=== PATIENT | female | born 1960 | race Caucasian/White ===

== ENCOUNTER 2021-07-24 20:32 | Inpatient (IN) | payer BC ==
[2021-07-24] MEDS ORDERED: METHYLPREDNISOLONE 125 MG INJ ONE (21:36)
--- NOTE | 2021-07-24 21:57 | RAD REPORT ---
EXAM DESCRIPTION: RAD - Chest Single View - 07/24/2021 9:49 pm CLINICAL HISTORY: covid +;Cough;Dyspnea COMPARISON: No comparisons FINDINGS: There are some patchy ill-defined opacities predominantly left-sided but also the right aleksandar ng base per The heart size is within normal limits.No acute osseous abnormality. No significant pleur al effusions or pneumothorax. IMPRESSION: Patchy ill-defined bilateral airspace disease, left greater than right, may reflect mult ifocal pneumonia.
[2021-07-24 22:34] LABS: Protime INR 1.14
[2021-07-24 22:35] LABS: Absolute Lymphocytes (CBC) 0.4 K/uL (0.7-4.9); Basophils % 0.1 % (0-1.3); Hematocrit 39.4 % (36.0-45.0); Lymphocytes % 11.3 % (15.3-44.8); MPV 8.4 fL (7.6-11.3)
[2021-07-24 22:42] LABS: ALT/SGPT 31 U/L (12-78); AST/SGOT 58 U/L (15-37); Albumin 2.6 g/dL (3.4-5.0); Alkaline Phosphatase 61 U/L (45-117); BUN Blood Urea Nitrogen 9 mg/dL (7-18); Bicarbonate 29 mmol/L (21-32); Bilirubin Direct 0.1 mg/dL (0-0.2); Bilirubin Total 0.3 mg/dL (0.2-1.0); Ferritin 727.8 ng/mL (8-388); Glucose Level 99 mg/dL (74-106); Lipase 281 U/L (73-393); Potassium 3.5 mmol/L (3.5-5.1); Protein, Total 7.1 g/dL (6.4-8.2); Sodium Level 139 mmol/L (136-145); Troponin (Emerg Dept Use Only) < 0.02 ng/mL (0.0-0.045)
--- NOTE | 2021-07-24 23:24 | ER ---
Nurse's Notes [facility] Name: Elle Foster Age: 60 yrs Sex: Female : 1960 Arrival Date: 07/24/2021 Time: 20:36 Bed 8 Private MD: Diagnosis: Pneumonia due to SARS-associated coronavirus;Dehydration;Hypoxemia Presentation: 07/24 21:00 Chief complaint: Patient states: had a rapid covid test today and was positive, SPO2 em 80% at home and was told to come to the ER if below 90%. Coronavirus screen: Client denies travel out of the [place] in the last 14 days. Ebola Screen: Patient negative for fever greater than or equal to 101.5 degrees Fahrenheit, and additional compatible Ebola Virus Disease symptoms Patient denies exposure to infectious person. Patient denies travel to an Ebola-affected area in the 21 days before illness onset. No symptoms or risks identified at this time. Initial Sepsis Screen: Does the patient meet any 2 criteria? HR > 90 bpm. No. Patient's initial sepsis screen is negative. Does the patient have a suspected source of infection? Yes: Productive cough/pneumonia. Risk Assessment: Do you want to hurt yourself or someone else? Patient reports no desire to harm self or others. Onset of symptoms was July 24, 2021. 21:00 Method Of Arrival: Ambulatory em 21:00 Acuity: MAXIMILIANO 2 em Historical: - Allergies: 21:02 No Known Allergies; em - PMHx: 21:02 None; em - PSHx: 21:02 None; em - Immunization history:: Client reports having NOT received the Covid vaccine. - Social history:: Smoking status: Patient denies any tobacco usage or history of. - Family history:: not pertinent. - Hospitalizations: : No recent hospitalization is reported. Screenin:00 Abuse screen: Denies threats or abuse. Nutritional screening: No deficits noted. jb4 Tuberculosis screening: No symptoms or risk factors identified. Fall Risk None identified. Assessment: 21:00 General: Appears in no apparent distress. comfortable, Behavior is calm, cooperative, jb4 appropriate for age. Pain: Denies pain. Neuro: Level of Consciousness is awake, alert, obeys commands, Oriented to person, place, time, situation. Cardiovascular: Patient's skin is warm and dry. Respiratory: Airway is patent Respiratory effort is even, unlabored, Respiratory pattern is regular, symmetrical. GI: No signs and/or symptoms were reported involving the gastrointestinal system. : No signs and/or symptoms were reported regarding the genitourinary system. EENT: No signs and/or symptoms were reported regarding the EENT system. Derm: Skin is intact, Skin is pink, warm \T\ dry. Musculoskeletal: Circulation, motion, and sensation intact. Range of motion:. 22:00 Reassessment: Patient appears in no apparent distress at this time. Patient and/or jb4 family updated on plan of care and expected duration. Pain level reassessed. Patient is alert, oriented x 3, equal unlabored respirations, skin warm/dry/pink. 22:45 Reassessment: Pt noted to desat while at rest to 88% on RA, placed on 2L NC, provider jb4 notified. 23:00 Reassessment: Patient appears in no apparent distress at this time. Patient and/or jb4 family updated on plan of care and expected duration. Pain level reassessed. Patient is alert, oriented x 3, equal unlabored respirations, skin warm/dry/pink. 07/25 00:00 Reassessment: Patient appears in no apparent distress at this time. Patient and/or jb4 family updated on plan of care and expected duration. Pain level reassessed. Patient is alert, oriented x 3, equal unlabored respirations, skin warm/dry/pink. 19:40 Reassessment: Report given to receiving nurse on fourth left ED via wheelchair, per ED ea tech, pt remains on O2 tolerating well. Vital Signs: 07/24 21:00 BP 115 / 69; Pulse 107; Resp 26; Temp 98.8; Pulse Ox 84% on R/A; Weight 42.64 kg; em Height 4 ft. 11 in. (149.86 cm); 22:01 BP 113 / 71; Pulse 101; Resp 35; Pulse Ox 93% on R/A; 23:00 BP 115 / 64; Pulse 99; Resp 26; Pulse Ox 96% on 2 lpm NC; jb4 07/25 00:00 BP 125 / 78; Pulse 96; Resp 20; Temp 98.9(O); Pulse Ox 95% on 2 lpm NC; 4 07/24 21:00 Body Mass Index 18.99 (42.64 kg, 149.86 cm) ED Course: 07/24 20:36 Patient arrived in ED. mr 21:00 Patient has correct armband on for positive identification. Bed in low position. Call jb4 light in reach. Side rails up X 1. engine monitor on. Pulse ox on. NIBP on. 21:01 Artemio Saldana MD is Attending Physician. rn 21:02 Triage completed. em 21:02 Arm band placed on. em 21:13 Shashi Murphy, RN is Primary Nurse. jb4 21:49 CXR XRAY In Process Unspecified. EDMS 22:00 Inserted saline lock: 18 gauge in right antecubital area, using aseptic technique. jb4 Blood collected. 23:23 Andrea Weber MD is Hospitalizing Provider. rn 07/25 00:00 No provider procedures requiring assistance completed. Patient admitted, IV remains in jb4 place. Administered Medications: 07/24 22:00 Drug: SOLU-Medrol (methylPrednisoLONE) 125 mg Route: IVP; Site: right antecubital; jb4 22:30 Follow up: Response: No adverse reaction jb4 Outcome: 23:23 Decision to Hospitalize by Provider. rn 07/25 00:00 Admitted to ER Hold. Please see [facility] for further documentation. jb4 Condition: stable Discharge instructions given to patient, Instructed on the need for admit, Demonstrated understanding of instructions. 19:42 Patient left the ED. ea Signatures: Dispatcher [employer] [facility] McleanHarriet mr CastroMarshal RN RN Artemio Saldana MD MD rn Bryson, James, RN RN [facility] Keysha Kim RN RN ea Corrections: (The following items were deleted from the chart) 07/24 21:03 21:02 Allergies: Aspirin; em em
--- NOTE | 2021-07-24 23:24 | EDPHYS ---
Physician Documentation [facility] Name: Elle Foster Age: 60 yrs Sex: Female : 1960 Arrival Date: 07/24/2021 Time: 20:36 Bed 8 Private MD: ED Physician Artemio Saldana HPI: 07/24 22:24 This 60 yrs old Female presents to ER via Ambulatory with complaints of rn COVID+ Low O2, Cough. 22:24 The patient or guardian reports cough, difficulty breathing. Onset: The rn symptoms/episode began/occurred 10 day(s) ago. Severity of symptoms: At their worst the symptoms were moderate, in the emergency department the symptoms are unchanged. Modifying factors: The symptoms are alleviated by nothing, the symptoms are aggravated by exertion. Associated signs and symptoms: Pertinent positives: fever, rhinorrhea, Pertinent negatives: chest pain. The patient has not experienced similar symptoms in the past. The patient has been recently seen by a physician:. 22:25 Patient reports about 1 week and 1/2 weeks of feeling bad, Covid positive with rapid rn test at home, cough and now shortness of breath that began today. No chronic medical problems.. Historical: - Allergies: 21:02 No Known Allergies; em - PMHx: 21:02 None; em - PSHx: 21:02 None; em - Immunization history:: Client reports having NOT received the Covid vaccine. - Social history:: Smoking status: Patient denies any tobacco usage or history of. - Family history:: not pertinent. - Hospitalizations: : No recent hospitalization is reported. ROS: 22:25 Constitutional: Positive for fever and chills Eyes: Negative for injury, pain, redness, rn and discharge, Neck: Negative for injury, pain, and swelling, Cardiovascular: Negative for chest pain, palpitations, and edema, Respiratory: Negative for wheezing, and pleuritic chest pain, Abdomen/GI: Negative for abdominal pain, nausea, vomiting, diarrhea, and constipation, Back: Negative for injury and pain, MS/Extremity: Negative for injury and deformity, Skin: Negative for injury, rash, and discoloration, Neuro: Negative for numbness, tingling, and seizure. 22:25 All other systems are negative. Exam: 22:25 Constitutional: This is a well developed, well nourished patient who is awake, alert, rn and in no acute distress. Head/Face: Normocephalic, atraumatic. Eyes: Pupils equal round and reactive to light, extra-ocular motions intact. Lids and lashes normal. Conjunctiva and sclera are non-icteric and not injected. Cornea within normal limits. Periorbital areas with no swelling, redness, or edema. ENT: No stridor, +dry mucous membranes Neck: Trachea midline, no thyromegaly or masses palpated, and no cervical lymphadenopathy. Supple, full range of motion without nuchal rigidity, or vertebral point tenderness. No Meningismus. Cardiovascular: Tachycardic, regular Respiratory: Mild to moderate tachypnea, no retractions Abdomen/GI: Soft, nontender Skin: Warm, dry, no cyanosis MS/ Extremity: Pulses equal, no cyanosis. Neurovascular intact. Full, normal range of motion. Equal circumference. Neuro: Awake and alert, GCS 15 23:07 ECG was reviewed by the Attending Physician. rn 07/25 02:21 ECG was reviewed by the Attending Physician. rn Vital Signs: 07/24 21:00 BP 115 / 69; Pulse 107; Resp 26; Temp 98.8; Pulse Ox 84% on R/A; Weight 42.64 kg; em Height 4 ft. 11 in. (149.86 cm); 22:01 BP 113 / 71; Pulse 101; Resp 35; Pulse Ox 93% on R/A; jb4 23:00 BP 115 / 64; Pulse 99; Resp 26; Pulse Ox 96% on 2 lpm NC; [facility] 07/25 00:00 BP 125 / 78; Pulse 96; Resp 20; Temp 98.9(O); Pulse Ox 95% on 2 lpm NC; 4 07/24 21:00 Body Mass Index 18.99 (42.64 kg, 149.86 cm) em MDM: 07/24 21:01 Patient medically screened. rn 23:21 Differential Diagnosis: Bronchitis Upper Respiratory Infection Viral Syndrome Pneumonia rn Other Covid. Data reviewed: vital signs, nurses notes, lab test result(s), EKG, radiologic studies, plain films, and as a result, I will admit patient. Data interpreted: quality assurance monitor final: rate is 101 beats/min, rhythm is sinus tachycardia, with no ectopy, Interpretation: tachycardia, Pulse oximetry: on room air is 88 %. Interpretation: hypoxia. Plan: O2 by NC applied. Test interpretation: by ED physician or midlevel provider: ECG, plain radiologic studies, Chest x-ray with bilateral infiltrates consistent with Covid pneumonia. Counseling: I had a detailed discussion with the patient and/or guardian regarding: the historical points, exam findings, and any diagnostic results supporting the discharge/admit diagnosis, lab results, radiology results, the need for further work-up and treatment in the hospital. Response to treatment: the patient's symptoms have mildly improved after treatment, and as a result, I will admit patient. Admission orders: after a detailed discussion of the patient's condition and case, the admit orders are written by me. 07/24 21:05 Order name: BMP 07/24 21:05 Order name: Blood Culture Adult (2) 07/24 21:05 Order name: C-Reactive Protein; Complete Time: 23: 07/24 21:05 Order name: CBC with Diff; Complete Time: 23: 07/24 21:05 Order name: D-Dimer; Complete Time: 23: 07/24 21:05 Order name: Ferritin; Complete Time: 23:06 07/24 21:05 Order name: LFT's; Complete Time: 23:06 07/24 21:05 Order name: Lactate 07/24 21:05 Order name: Lipase; Complete Time: 23:06 07/24 21:05 Order name: PT-INR; Complete Time: 23:06 07/24 21:05 Order name: Procalcitonin 07/24 21:05 Order name: Ptt, Activated; Complete Time: 23: 07/24 21:05 Order name: Troponin (emerg Dept Use Only); Complete Time: 23:06 07/24 21:06 Order name: Basic Metabolic Panel; Complete Time: 23:06 EDAL 07/24 21:05 Order name: CXR XRAY; Complete Time: 22:03 07/24 21:05 Order name: EKG; Complete Time: 21: 07/24 21:06 Order name: Blood Culture [facility] 07/24 23:19 Order name: SARS-COV-2 RT PCR EDAL 07/25 04:41 Order name: CBC with Automated Diff EDAL 07/25 04:49 Order name: Comprehensive Metabolic Panel [facility] 07/25 04:49 Order name: Phosphorus EDAL 07/25 04:49 Order name: Lipid Profile [facility] 07/25 04:49 Order name: C-Reactive Protein [facility] 07/25 04:49 Order name: T4 Free [facility] 07/25 04:49 Order name: Magnesium [facility] 07/25 04:49 Order name: Thyroid Stimulating Hormone [facility] 07/25 04:49 Order name: Ferritin [facility] 07/25 05:04 Order name: Procalcitonin [facility] 07/24 21:05 Order name: Cardiac monitoring; Complete Time: 22:00 rn 07/24 21:05 Order name: Droplet/Contact Precautions; Complete Time: 22:00 rn 07/24 21:05 Order name: EKG - Nurse/Tech; Complete Time: 22:00 rn 07/24 21:05 Order name: IV Start; Complete Time: 22:00 rn 07/24 21:05 Order name: Labs collected and sent; Complete Time: 22:01 rn 07/24 21:05 Order name: O2 Per Protocol; Complete Time: 22: rn 07/24 21:05 Order name: O2 Sat Monitoring; Complete Time: 22: rn 07/24 23:49 Order name: CONS Physician Consult EDAL EC:07 Rate is 97 beats/min. Rhythm is regular. QRS [place] is Normal. NC interval is normal. QRS rn interval is normal. QT interval is normal. No Q waves. T waves are Normal. No ST changes noted. Clinical impression: Normal ECG. Interpreted by me. Reviewed by me. Administered Medications: 22:00 Drug: SOLU-Medrol (methylPrednisoLONE) 125 mg Route: IVP; Site: right antecubital; jb4 22:30 Follow up: Response: No adverse reaction jb4 Disposition Summary: 07/24/21 23:23 Hospitalization Ordered Hospitalization Status: Inpatient Admission rn Provider: Andrea Weber rn Condition: Stable rn Problem: new rn Symptoms: have improved rn Bed/Room Type: Standard rn Location: Telemetry/MedSurg (Inpatient)(07/25/21 18:36) dw Room Assignment: 430(07/25/21 18:36) dw Diagnosis - Pneumonia due to SARS-associated coronavirus rn - Dehydration rn - Hypoxemia rn Forms: - Medication Reconciliation Form rn - SBAR form rn Signatures: Dispatcher [employer] EDAL Consuelo Mayes, RN RN dw Marshal Castro RN RN em Artemio Saldana MD MD rn Lasagna, Tonya, RN RN tl1 Shashi Murphy RN RN jb4 Corrections: (The following items were deleted from the chart) 21:03 21:02 Allergies: Aspirin; em em 22:10 21:07 CORONAVIRUS+MR.LAB.BRZ ordered. [facility] 07/25 00:20 07/24 23:23 Telemetry/MedSurg (Inpatient) rn tl1 07/25 00:20 07/24 23:23 rn tl1 07/25 18:36 00:20 [facility] ER HOLD tl1 dw 18:36 00:20 ERHOLD- tl1 dw
--- NOTE | 2021-07-25 00:28 | P.HP ---
Certification for Inpatient Patient admitted to: Observation With expected LOS: <2 Midnights Patient will require the following post-hospital care: None Practitioner: I am a practitioner with admitting privileges, knowledge of patient current condition, hospital course, and medical plan of care. Services: Services provided to patient in accordance with Admission requirements found in Title 42 Section 412.3 of the Code of Federal Regulations <Erich Messina - Last Filed: 07/25/21 00:22> Patient History Date of Service: 07/24/21 Primary Care Provider: Khadijah Reason for admission: covid pneumonia History of Present Illness: Ms. Foster is a 60 yo F who presents with 10 days of worsening cough and SOB. She is positive for COVID. Reports fever, malaise, anorexia, sputum production, and diarrhea. Denies nausea and vomiting. Sats of 84% on RA, improved on NC. CXR shows patchy ill-defined bilateral airspace disease, left greater than right that may reflect multifocal pneuemonia. Ferritin 727. CRP 116. - Past Medical/Surgical History Has patient received pneumonia vaccine in the past: No Diabetic: No Past Medical History: Patient denies medical history Past Surgical History: Patient denies surgical history - Family History Family History: Reviewed- Non-Contributory - Social History Smoking Status: Never smoker Alcohol use: Yes CD- Drugs: No Caffeine use: Yes Place of Residence: Home <Erich Messina - Last Filed: 07/25/21 00:22> Date of Service: 07/24/21 <Andrea Weber - Last Filed: 07/26/21 17:05> Review of Systems 10-point ROS is otherwise unremarkable General: Fever, Chills, Sweats, Malaise Respiratory: Cough, Shortness of Breath, SOB with Excertion, Sputum Gastrointestinal: Diarrhea <Erich Messina - Last Filed: 07/25/21 00:22> Physical Examination - Physical Exam General: Alert, In no apparent distress HEENT: Atraumatic, PERRLA, Mucous membr. moist/pink, EOMI, Sclerae nonicteric Neck: Supple, 2+ carotid pulse no bruit, No LAD, Without JVD or thyroid abnormality Respiratory: Normal air movement, Rhonchi/gurgles Cardiovascular: Regular rate/rhythm, Normal S1 S2 Gastrointestinal: Normal bowel sounds, No tenderness Musculoskeletal: No tenderness Integumentary: No rashes Neurological: Normal gait, Normal speech, Normal strength at 5/5 x4 extr, Normal tone, Normal affect Lymphatics: No axilla or inguinal lymphadenopathy - Studies Laboratory Data (last 24 hrs) 07/24/21 21:50: PT 13.1 H, INR 1.14, APTT 33.7 07/24/21 21:50: WBC 3.80 L, Hgb 13.3, Hct 39.4, Plt Count 170 07/24/21 21:50: Sodium 139, Potassium 3.5, BUN 9, Creatinine 0.50 L, Glucose 99, Total Bilirubin 0.3, AST 58 H, ALT 31, Alkaline Phosphatase 61, Lipase 281 <Erich Messina - Last Filed: 07/25/21 00:22> - Studies Microbiology Data (last 24 hrs): 07/24/21 22:45 Blood - Blood Anaerobic Blood Culture - Final <Andrea Weber - Last Filed: 07/26/21 17:05> Assessment and Plan - Problems (Diagnosis) (1) Pneumonia due to COVID-19 virus Current Visit: Yes Status: Acute - Plan pulm consulted, respiratory therapy consulted sats for home o2, and room air sats daily continue IV steroids, covid supplementation and ivermectin daily CRP, ferritin, procal DVT ppx Discharge Plan: Home Plan to discharge in: 24 Hours - Advance Directives Does patient have a Living Will: No Does patient have a Durable POA for Healthcare: No - Code Status/Comfort Care Code Status Assessed: Yes (full code ) Critical Care: No Time Spent Managing Pts Care (In Minutes): 70 <Erich Messina - Last Filed: 07/25/21 00:22> - Problems (Diagnosis) (1) Pneumonia due to COVID-19 virus Current Visit: Yes Status: Acute <Andrea Weber - Last Filed: 07/26/21 17:05> Date of Service: 07/24/21 Subjective Patient is clinically doing well; she is constipated Review of Systems 10-point ROS is otherwise unremarkable Physical Examination - Vital Signs reviewed - Physical Exam General: Alert, In no apparent distress, Oriented x3 Respiratory: Diminished, Expiratory wheezes Cardiovascular: Regular rate/rhythm, Normal S1 S2, No murmurs Gastrointestinal: Normal bowel sounds, Soft and benign, Non-distended, No tenderness Musculoskeletal: No clubbing, No swelling, No tenderness Neurological: Sensation intact, Cranial nerves 3-12 intact Assessment & Plan - Problems (Diagnosis) (1) Pneumonia due to COVID-19 virus Current Visit: Yes Status: Acute - Plan Continue with POC as mentioned above 1. Continue with IV steroids 2. Monitor inflammatory markers 3. Repeat chest x-ray is symptoms are progressively worsening 4. O2 per protocol 5. Pulmonary consultation 6. Continue with albuterol inhaler therapy; also supportive care 7. Monitor LFTs 8. GI and DVT prophylaxis - Advance Directives Does patient have a Living Will: Yes Does patient have a Durable POA for Healthcare: No <Andrea Weber - Last Filed: 07/26/21 17:05>
[2021-07-25] MEDS ORDERED: MORPHINE 2 MG/ML SYR IV PRN (02:46)
[2021-07-25] MEDS ORDERED: IVERMECTIN 3 MG TABLET PO SCH (02:46)
[2021-07-25] MEDS ORDERED: ONDANSETRON 4 MG/2 ML VIAL IV PRN (02:46)
[2021-07-25] MEDS ORDERED: RIVAROXABAN 10 MG TABLET PO SCH (02:46)
[2021-07-25] MEDS ORDERED: ACETAMINOPHEN 500 MG TAB PO PRN (02:46)
[2021-07-25] MEDS ORDERED: RIVAROXABAN 20 MG TABLET PO ONE ×2 (04:01→17:10)
[2021-07-25 04:26] LABS: Absolute Lymphocytes (CBC) 0.2 K/uL (0.7-4.9); Basophils % 0.1 % (0-1.3); Hematocrit 40.8 % (36.0-45.0); MPV 8.4 fL (7.6-11.3); RBC Red Blood Cell Count 4.49 M/uL (3.86-4.86)
[2021-07-25 04:48] LABS: ALT/SGPT 32 U/L (12-78); AST/SGOT 50 U/L (15-37); Albumin 2.6 g/dL (3.4-5.0); Alkaline Phosphatase 63 U/L (45-117); BUN Blood Urea Nitrogen 10 mg/dL (7-18); Bicarbonate 31 mmol/L (21-32); Bilirubin Total 0.3 mg/dL (0.2-1.0); Ferritin 690.6 ng/mL (8-388); Glucose Level 145 mg/dL (74-106); HDL Cholesterol 55 mg/dL (40-60); LDL Cholesterol, Calculated 65 (<130); Magnesium 2.3 mg/dL (1.8-2.4); Phosphorus 3.6 mg/dL (2.5-4.9); Potassium 4.5 mmol/L (3.5-5.1); Protein, Total 7.2 g/dL (6.4-8.2); Sodium Level 140 mmol/L (136-145); Thyroid Stimulating Hormone 0.213 uIU/mL (0.360-3.740)
[2021-07-25 05:58] VITALS: BMI 19.0
[2021-07-25] MEDS: FAMOTIDINE 20 MG TAB PO SCH ×2 (09:00→20:06)
[2021-07-25] MEDS: VITAMIN D 1000 UNIT TAB PO SCH (09:00)
[2021-07-25] MEDS: ZINC SULFATE 220 MG CAP PO SCH (09:00)
[2021-07-25] MEDS: THIAMINE HCL 100 MG TABLET PO SCH (09:00)
[2021-07-25] MEDS: ASCORBIC ACID 500 MG TABLET PO SCH ×4 (09:00→20:06)
[2021-07-25] MEDS: IVERMECTIN 3 MG TABLET PO SCH (09:00)
[2021-07-25] MEDS: METHYLPREDNISOLONE 125 MG INJ IV SCH ×2 (09:00→20:06)
[2021-07-25] MEDS: ASPIRIN EC 81 MG TAB PO SCH (09:00)
[2021-07-25] MEDS ORDERED: METHYLPREDNISOLONE 125 MG INJ ONE (09:32)
[2021-07-25] MEDS ORDERED: THIAMINE HCL 100 MG TABLET ONE (09:32)
[2021-07-25] MEDS ORDERED: ASCORBIC ACID 500 MG TABLET ONE ×2 (09:32→17:10)
[2021-07-25] MEDS ORDERED: ZINC SULFATE 220 MG CAP ONE (09:33)
[2021-07-25] MEDS ORDERED: ASPIRIN EC 81 MG TAB PO ONE (09:33)
[2021-07-25] MEDS ORDERED: FAMOTIDINE 20 MG TAB ONE (09:33)
[2021-07-25] MEDS ORDERED: VITAMIN D 1000 UNIT TAB ONE (09:33)
[2021-07-25] MEDS ORDERED: MORPHINE 2 MG/ML SYR ONE (09:49)
[2021-07-25] MEDS ORDERED: ONDANSETRON 4 MG/2 ML VIAL ONE (09:50)
--- NOTE | 2021-07-25 16:53 | P.CNS ---
Date of Consult: 07/25/21 Reason for Consult: Coronavirus pneumonia Primary Care Provider: Khadijah Chief Complaint: covid pneumonia History of Present Illness: Patient is 60 years of age admitted with respiratory failure mild hypoxemia mild patchy changes diagnosis of coronavirus pneumonia she continues to complain of coughing is on nasal cannula oxygen Allergies No Known Allergies Allergy (Unverified 07/25/21 02:45) - Past Medical/Surgical History Diabetic: No - Social History Alcohol use: Yes CD- Drugs: No Caffeine use: Yes Place of Residence: Home Review of Systems General: Weakness Respiratory: Shortness of Breath Physical Examination Temp Pulse Resp BP Pulse Ox 98.4 F 104 H 25 H 118/73 92 07/25/21 16:00 07/25/21 16:00 07/25/21 16:00 07/25/21 16:00 07/25/21 12:00 General: Alert, Oriented x2 Laboratory Data (last 24 hrs) 07/24/21 21:50: PT 13.1 H, INR 1.14, APTT 33.7 07/24/21 21:50: WBC 3.80 L, Hgb 13.3, Hct 39.4, Plt Count 170 07/24/21 21:50: Sodium 139, Potassium 3.5, BUN 9, Creatinine 0.50 L, Glucose 99, Total Bilirubin 0.3, AST 58 H, ALT 31, Alkaline Phosphatase 61, Lipase 281 - Problems (1) Pneumonia due to COVID-19 virus Current Visit: Yes Status: Acute Plan: Patient is 60 years of age admitted with coronavirus pneumonia planes of coughing spells is on nasal cannula oxygen plan for discharge tomorrow if stable renal changes on x-ray
[2021-07-25] MEDS: RIVAROXABAN 20 MG TABLET PO SCH (17:00)
[2021-07-25] MEDS: BENZONATATE 100 MG CAP PO PRN (20:18)
[2021-07-25] MEDS: MELATONIN 5 MG TABLET PO PRN (20:18)
[2021-07-26] MEDS: ASPIRIN EC 81 MG TAB PO SCH (09:00)
[2021-07-26] MEDS: ZINC SULFATE 220 MG CAP PO SCH (11:16)
[2021-07-26] MEDS: ASCORBIC ACID 500 MG TABLET PO SCH ×4 (11:16→20:41)
[2021-07-26] MEDS: METHYLPREDNISOLONE 125 MG INJ IV SCH ×2 (11:16→20:37)
[2021-07-26] MEDS: VITAMIN D 1000 UNIT TAB PO SCH (11:17)
[2021-07-26] MEDS: THIAMINE HCL 100 MG TABLET PO SCH (11:17)
[2021-07-26] MEDS: FAMOTIDINE 20 MG TAB PO SCH ×2 (11:17→20:37)
[2021-07-26] MEDS: RIVAROXABAN 20 MG TABLET PO SCH (17:00)
[2021-07-26] MEDS ORDERED: MINERAL OIL 30 ML UCUP PO ONE (17:02)
--- NOTE | 2021-07-26 17:02 | P.PN ---
Subjective Date of Service: 07/25/21 No new changes. Patient clinically doing better. Hopefully discharge over the next 48 hr Review of Systems 10-point ROS is otherwise unremarkable Physical Examination - Vital Signs Temperature: 97.0 F Blood Pressure: 107/62 Pulse: 91 Respirations: 26 Pulse Ox (%): 89 - Physical Exam General: Alert, In no apparent distress, Oriented x3 Respiratory: Diminished, Expiratory wheezes Cardiovascular: Regular rate/rhythm, Normal S1 S2, No murmurs Gastrointestinal: Normal bowel sounds, Soft and benign, Non-distended, No tenderness Musculoskeletal: No clubbing, No swelling, No tenderness Neurological: Sensation intact, Cranial nerves 3-12 intact - Studies Microbiology Data (last 24 hrs): 07/24/21 22:45 Blood - Blood Anaerobic Blood Culture - Final Medications List Reviewed: Yes Assessment & Plan - Problems (Diagnosis) (1) Pneumonia due to COVID-19 virus Current Visit: Yes Status: Acute - Plan Continue with plan of care as mentioned below: 1. Continue with IV steroids 2. Monitor inflammatory markers 3. Repeat chest x-ray is symptoms are progressively worsening 4. O2 per protocol 5. Pulmonary consultation 6. Continue with albuterol inhaler therapy; also supportive care 7. Monitor LFTs 8. GI and DVT prophylaxis - Advance Directives Does patient have a Living Will: Yes Does patient have a Durable POA for Healthcare: No
--- NOTE | 2021-07-26 17:06 | P.PN ---
Date of Service: 07/26/21 Subjective Patient is clinically doing well; she is constipated Review of Systems 10-point ROS is otherwise unremarkable Physical Examination - Vital Signs reviewed - Physical Exam General: Alert, In no apparent distress, Oriented x3 Respiratory: Diminished, Expiratory wheezes Cardiovascular: Regular rate/rhythm, Normal S1 S2, No murmurs Gastrointestinal: Normal bowel sounds, Soft and benign, Non-distended, No tenderness Musculoskeletal: No clubbing, No swelling, No tenderness Neurological: Sensation intact, Cranial nerves 3-12 intact Assessment & Plan - Problems (Diagnosis) (1) Pneumonia due to COVID-19 virus Current Visit: Yes Status: Acute - Plan 1. Continue with IV steroids 2. Monitor inflammatory markers 3. Repeat chest x-ray is symptoms are progressively worsening 4. O2 per protocol 5. Pulmonary consultation 6. Continue with albuterol inhaler therapy; also supportive care 7. Monitor LFTs 8. GI and DVT prophylaxis
[2021-07-26] MEDS: BENZONATATE 100 MG CAP PO PRN (20:37)
[2021-07-26] MEDS: MELATONIN 5 MG TABLET PO PRN (20:37)
[2021-07-26] MEDS ORDERED: GUAIFENESIN/DM 5 ML UCUP PO PRN (22:06)
[2021-07-27] MEDS: IVERMECTIN 3 MG TABLET PO SCH (09:00)
[2021-07-27] MEDS: METHYLPREDNISOLONE 125 MG INJ IV SCH ×2 (09:00→20:01)
[2021-07-27] MEDS: ASPIRIN EC 81 MG TAB PO SCH (09:00)
[2021-07-27] MEDS: VITAMIN D 1000 UNIT TAB PO SCH (10:00)
[2021-07-27] MEDS: FAMOTIDINE 20 MG TAB PO SCH ×2 (10:01→20:01)
[2021-07-27] MEDS: THIAMINE HCL 100 MG TABLET PO SCH (10:01)
[2021-07-27] MEDS: ZINC SULFATE 220 MG CAP PO SCH (10:01)
[2021-07-27] MEDS: ASCORBIC ACID 500 MG TABLET PO SCH ×3 (10:02→20:02)
[2021-07-27] MEDS ORDERED: IVERMECTIN 3 MG TABLET PO SCH (14:00)
[2021-07-27] MEDS: RIVAROXABAN 20 MG TABLET PO SCH (17:32)
[2021-07-27] MEDS: MELATONIN 5 MG TABLET PO PRN (20:02)
[2021-07-27] MEDS: BENZONATATE 100 MG CAP PO PRN (20:02)
--- NOTE | 2021-07-28 01:36 | P.PN ---
Date of Service: 07/27/21 Subjective Patient is doing well. No new complaints. Anticipate discharge in the morning if oxygen saturations are in the 90s on 3-4 L. Hopefully, he can get this oxygen taking back in the next 2 weeks. Review of Systems 10-point ROS is otherwise unremarkable Physical Examination - Vital Signs reviewed - Physical Exam General: Alert, In no apparent distress, Oriented x3 Respiratory: Diminished, Expiratory wheezes Cardiovascular: Regular rate/rhythm, Normal S1 S2, No murmurs Gastrointestinal: Normal bowel sounds, Soft and benign, Non-distended, No tenderness Assessment & Plan - Problems (Diagnosis) (1) Pneumonia due to COVID-19 virus Current Visit: Yes Status: Acute - Plan Continue with plan of care as mentioned below: 1. Continue with IV steroids 2. Monitor inflammatory markers 3. Repeat chest x-ray is symptoms are progressively worsening 4. O2 per protocol 5. Pulmonary consultation 6. Continue with albuterol inhaler therapy; also supportive care 7. Monitor LFTs 8. GI and DVT prophylaxis
[2021-07-28 05:42] LABS: Absolute Lymphocytes (CBC) 0.3 K/uL (0.7-4.9); Basophils % 0.1 % (0-1.3); Hematocrit 39.1 % (36.0-45.0); MPV 8.6 fL (7.6-11.3)
[2021-07-28 05:57] LABS: BUN Blood Urea Nitrogen 19 mg/dL (7-18); Bicarbonate 31 mmol/L (21-32); Glucose Level 163 mg/dL (74-106); Potassium 4.9 mmol/L (3.5-5.1); Sodium Level 145 mmol/L (136-145)
[2021-07-28] MEDS: METHYLPREDNISOLONE 125 MG INJ IV SCH (09:00)
[2021-07-28] MEDS: ASPIRIN EC 81 MG TAB PO SCH (09:00)
[2021-07-28] MEDS: ASCORBIC ACID 500 MG TABLET PO SCH ×2 (09:00→12:35)
[2021-07-28] MEDS: FAMOTIDINE 20 MG TAB PO SCH (09:14)
[2021-07-28] MEDS: THIAMINE HCL 100 MG TABLET PO SCH (09:14)
[2021-07-28] MEDS: VITAMIN D 1000 UNIT TAB PO SCH (09:14)
[2021-07-28] MEDS: ZINC SULFATE 220 MG CAP PO SCH (09:14)
[2021-07-28 09:44] VITALS: BP 117/56; TEMP 97.9
--- NOTE | 2021-07-28 10:30 | P.DS ---
Admission Date: 07/26/21 Discharge Date: 07/28/21 Primary Care Provider: Dr. Lucio Disposition: ROUTINE DISCHARGE Discharge Condition: GOOD Reason for Admission: covid pneumonia Consultations: Pulmonary-Dr. Wu Procedures: COVID: Positive CXR: COMPARISON: No comparisons FINDINGS: There are some patchy ill-defined opacities predominantly left-sided but also the right lung base per The heart size is within normal limits.No acute osseous abnormality. No significant pleural effusions or pneumothorax. IMPRESSION: Patchy ill-defined bilateral airspace disease, left greater than right, may reflect multifocal pneumonia. Medical Problem List: Dyspnea secondary to COVID-19 bilateral pneumonia with hypoxia Brief History of Present Illness: 60-year-old female with history of 10 days of worsening cough, shortness of breath. Patient was positive for COVID-19. Patient had fever, anorexia with increased sputum production. Chest x-ray showed Covid pneumonia. Patient admitted for treatment. Hospital Course: Patient presented with bilateral COVID-19 pneumonia with hypoxia. Patient required hospitalization. Patient received IV fluids and supplementation. Her condition improved. At discharge she is without significant shortness of breath. Currently stable on oxygen. At discharge home oxygen will be arranged. Patient will continue with 4 L per nasal cannula. At discharge the patient will continue with prednisone 20 mg 1 pill twice daily for 7 days then 1 pill once daily for 7 days. The patient will continue with aspirin 81 mg daily. Patient will be given a limited supply of Tessalon 100 mg 1 pill 3 times a day as needed for cough. The patient will continue with vitamin supplementation including vitamin C 500 mg 1 pill 3 times a day, vitamin D 2000 units daily, thiamine 100 mg 1 pill twice daily, Pepcid 20 mg 1 pill twice daily, and zinc 220 mg daily. Recommend to continue proning, incentive spirometer, and activity. She may have to limit her activities until she is completely off of oxygen. Pulmonology will help wean her off oxygen. At discharge she will continue with COVID-19 isolation recommendations. The patient will continue with handwashing, social distancing, and facemask use. Recommend follow-up with pulmonology in 1 week to follow-up his hospitalization and to continue her care. Recommend follow-up with her PCP to follow-up this hospitalization as well. Vital Signs/Physical Exam: Temp Pulse Resp BP Pulse Ox 97.9 F 44 L 20 117/56 L 92 08/30/21 08:00 07/28/21 08:00 07/28/21 08:00 07/28/21 08:00 07/28/21 08:00 General: Alert, In no apparent distress, Oriented x3, Cooperative HEENT: Atraumatic Neck: Supple Respiratory: Clear to auscultation bilaterally, Other (Currently on 4 L per nasal cannula) Cardiovascular: Normal pulses, Regular rate/rhythm Gastrointestinal: Normal bowel sounds Musculoskeletal: No erythema, No tenderness, No warmth Integumentary: No tenderness/swelling Neurological: Normal speech, Normal strength at 5/5 x4 extr, Normal tone Laboratory Data at Discharge: WBC 6.10 K/uL (4.3-10.9) D 07/28/21 05:12 Hgb 12.9 g/dL (12.0-15.0) 07/28/21 05:12 Hct 39.1 % (36.0-45.0) 07/28/21 05:12 Plt Count 257 K/uL (152-406) D 07/28/21 05:12 PT 13.1 SECONDS (9.5-12.5) H 07/24/21 21:50 INR 1.14 07/24/21 21:50 APTT 33.7 SECONDS (24.3-36.9) 07/24/21 21:50 Sodium 145 mmol/L (136-145) 07/28/21 05:12 Potassium 4.9 mmol/L (3.5-5.1) 07/28/21 05:12 BUN 19 mg/dL (7-18) H 07/28/21 05:12 Creatinine 0.62 mg/dL (0.55-1.3) 07/28/21 05:12 Glucose 163 mg/dL (74-106) H 07/28/21 05:12 Phosphorus 3.6 mg/dL (2.5-4.9) 07/25/21 03:19 Magnesium 2.3 mg/dL (1.8-2.4) 07/25/21 03:19 Total Bilirubin 0.3 mg/dL (0.2-1.0) 07/25/21 03:19 AST 50 U/L (15-37) H 07/25/21 03:19 ALT 32 U/L (12-78) 07/25/21 03:19 Alkaline Phosphatase 63 U/L (45-117) 07/25/21 03:19 Triglycerides 84 mg/dL (<150) 07/25/21 03:19 Cholesterol 137 mg/dL (<200) 07/25/21 03:19 HDL Cholesterol 55 mg/dL (40-60) 07/25/21 03:19 Cholesterol/HDL Ratio 2.49 07/25/21 03:19 Lipase 281 U/L (73-393) 07/24/21 21:50 Home Medications: Loteprednol Etabonate [Lotemax] 1 drop OP QID 07/25/21 Ascorbic Acid [Vitamin C*] 500 mg PO TID #90 tablet 07/28/21 Aspirin [Aspirin EC 81 MG] 81 mg PO DAILY #30 tablet. 07/28/21 Benzonatate [Tessalon Perle*] 100 mg PO TID PRN #15 cap 07/28/21 Cholecalciferol (Vitamin D3) [Vitamin D 1000 Iu Tab*] 2,000 unit PO DAILY #60 tab 07/28/21 Famotidine [Pepcid] 20 mg PO BID #60 tab 07/28/21 Thiamine HCl [Vitamin B-1*] 200 mg PO DAILY #60 tablet 07/28/21 Zinc Sulfate [Zinc Sulfate*] 220 mg PO DAILY #30 cap 07/28/21 predniSONE [Prednisone*] 20 mg PO SEECOM #21 tab 07/28/21 New Medications: Aspirin [Aspirin EC 81 MG] 81 mg PO DAILY #30 tablet. Famotidine [Pepcid] 20 mg PO BID #60 tab predniSONE [Prednisone*] 20 mg PO SEECOM #21 tab Benzonatate [Tessalon Perle*] 100 mg PO TID PRN #15 cap PRN Reason: Cough Thiamine HCl [Vitamin B-1*] 200 mg PO DAILY #60 tablet Ascorbic Acid [Vitamin C*] 500 mg PO TID #90 tablet Cholecalciferol (Vitamin D3) [Vitamin D 1000 Iu Tab*] 2,000 unit PO DAILY #60 tab Zinc Sulfate [Zinc Sulfate*] 220 mg PO DAILY #30 cap Physician Discharge Instructions: Patient presented with bilateral COVID-19 pneumonia with hypoxia. Patient required hospitalization. Patient received IV fluids and supplementation. Her condition improved. At discharge she is without significant shortness of breath. Currently stable on oxygen. At discharge home oxygen will be arranged. Patient will continue with 4 L per nasal cannula. At discharge the patient will continue with prednisone 20 mg 1 pill twice daily for 7 days then 1 pill once daily for 7 days. The patient will continue with aspirin 81 mg daily. Patient will be given a limited supply of Tessalon 100 mg 1 pill 3 times a day as needed for cough. The patient will continue with vitamin supplementation including vitamin C 500 mg 1 pill 3 times a day, vitamin D 2000 units daily, thiamine 100 mg 1 pill twice daily, Pepcid 20 mg 1 pill twice daily, and zinc 220 mg daily. Recommend to continue proning, incentive spirometer, and activity. She may have to limit her activities until she is completely off of oxygen. Pulmonology will help wean her off oxygen. At discharge she will continue with COVID-19 isolation recommendations. The patient will continue with handwashing, social distancing, and facemask use. Recommend follow-up with pulmonology in 1 week to follow-up his hospitalization and to continue her care. Recommend follow-up with her PCP to follow-up this hospitalization as well. Diet: Regular Activity: Ad juan josé Followup: NONE,NONE [Primary Care Provider] - Time spent managing pt's care (in minutes): 55
[2021-07-28] MEDS ORDERED: LOTEPREDNOL ETABONATE OPTH SCH (13:00)
[2021-07-28 14:11] LABS: White Blood Cell Scan OK (OK)
[2021-07-28 14:12] LABS: Blood Morphology Comment NOT SEEN (NOT SEEN); Platelet Estimate ADEQ; Platelets, Giant PRESENT
[2021-07-28 14:31] VITALS: O2SAT 94
== END 2021-07-28 17:30 | disposition home or self-care (01) | DRG 177 ==
LOC: ER 20:32 → ERHOLD 07-25 00:51 → 4TH 07-25 19:21 → OBSVTOIN 07-26 13:39
PROVIDERS: ADMIT Hospitalist; ATTEND Hospitalist
DX: U07.1 COVID-19 (principal); J12.82 Pneumonia due to coronavirus disease 2019; J96.91 Respiratory failure, unspecified with hypoxia
CPT/HCPCS: 36415; 71045; 80048; 80053; 80061; 80076; 82728; 83605; 83690; 83735; 84100; 84145; 84439; 84443; 84484; 85025; 85379; 85610; 85730; 86140; 87040; 93005; 94760; 96374; 99285; G0378; J2270; J2405; J2930; U0003